=== PATIENT | female | born 2000 | race Two or more races ===

== ENCOUNTER 2018-12-04 19:56 | Emergency (ER) | payer OTHER ==
[~2018-12-04] VITALS: Ht 147.3 cm; Wt 44.5 kg
== END 2018-12-04 21:36 | disposition home or self-care (01) ==
LOC: ER 19:56
DX: N39.0 Urinary tract infection, site not specified (principal); R30.0 Dysuria

== ENCOUNTER 2019-02-24 11:14 | Emergency (ER) | payer OTHER ==
[~2019-02-24] VITALS: Ht 147.3 cm; Wt 46.7 kg
[2019-02-24] MEDS ORDERED: NITROFURANTOIN50 MG PO (12:04)
[2019-02-24] MEDS ORDERED: PRENATAL + DHA1 EAC1 PO (12:05)
== END 2019-02-24 18:08 | disposition home or self-care (01) ==
LOC: ER
DX: O23.32 Infections of other parts of urinary tract in pregnancy, second trimester (principal); O26.892 Other specified pregnancy related conditions, second trimester; N20.0 Calculus of kidney; B96.89 Other specified bacterial agents as the cause of diseases classified elsewhere; R10.31 Right lower quadrant pain; R10.11 Right upper quadrant pain; Z34.02 Encounter for supervision of normal first pregnancy, second trimester

== ENCOUNTER 2019-06-22 10:38 | Outpatient (CLI) | payer OTHER ==
[~2019-06-22 10:38] MED LIST: NITROFURANTOIN50 MG PO; PRENATAL + DHA1 EAC1 PO
== END 2019-06-22 11:13 | disposition home or self-care (01) ==
LOC: OBS/DEL 10:38
DX: O26.893 Other specified pregnancy related conditions, third trimester (principal); R10.2 Pelvic and perineal pain

== ENCOUNTER 2019-06-27 21:40 | Inpatient (IN) | payer OTHER ==
[~2019-06-27] VITALS: Ht 147.3 cm; Wt 54.4 kg
[2019-06-27] MEDS ORDERED: ATABEX DHA 200200 MG PO (22:13)
== END 2019-07-02 12:07 | disposition home or self-care (01) | DRG 788 ==
LOC: LDR 21:40 → OB/GYN 21:40
PROVIDERS: ADMIT Obstetrics & Gynecology
PROC: 4A1HXCZ Monitoring of Products of Conception, Cardiac Rate, External Approach (ICD-10-PCS; 2019-06-27)
PROC: 10D00Z1 Extraction of Products of Conception, Low, Open Approach (ICD-10-PCS; principal; 2019-06-29 07:00)
DX: O82 Encounter for cesarean delivery without indication (principal); O61.0 Failed medical induction of labor; Z3A.36 36 weeks gestation of pregnancy; Z37.0 Single live birth

== ENCOUNTER 2019-07-22 02:07 | Emergency (ER) | payer OTHER ==
[~2019-07-22] VITALS: Ht 147.3 cm; Wt 46.7 kg
[~2019-07-22 02:07] MED LIST changes: +ATABEX DHA 200200 MG PO
[2019-07-22] MEDS ORDERED: FLONASE ALLERG9.9 ML NASAL ×2 (05:10→05:11)
[2019-07-22] MEDS ORDERED: ZITHROMAX500 MG PO ×2 (05:10→05:11)
== END 2019-07-22 05:31 | disposition home or self-care (01) ==
LOC: ER 02:07
DX: B34.9 Viral infection, unspecified (principal); R50.9 Fever, unspecified

== ENCOUNTER 2019-07-25 12:20 | Emergency (ER) | payer OTHER ==
[~2019-07-25] VITALS: Ht 147.3 cm; Wt 46.7 kg
[~2019-07-25 12:20] MED LIST changes: +FLONASE ALLERG9.9 ML NASAL; +ZITHROMAX500 MG PO
== END 2019-07-25 14:14 | disposition home or self-care (01) ==
LOC: ER 12:20
DX: L02.211 Cutaneous abscess of abdominal wall (principal)